=== PATIENT | female | born 1990 | race Caucasian/White ===

== ENCOUNTER 2023-08-18 20:25 | Emergency (ER) | payer OTHER ==
[~2023-08-18] VITALS: Ht 157.5 cm; Wt 86.2 kg
[2023-08-18 20:40] VITALS: BP 135/78; PULSE 92; RESP 19; TEMP 98; O2SAT 97
[2023-08-18 22:45] LABS: FLU A ANTIGEN negative (NEGATIVE); FLU B ANTIGEN NEGATIVE (NEGATIVE)
[2023-08-18 23:09] VITALS: BP 135/78; PULSE 92; RESP 19; TEMP 98; O2SAT 97
[2023-08-18] MEDS ORDERED: CETI10SG1 PO (23:16)
[2023-08-18] MEDS ORDERED: ROB PO (23:16)
[2023-08-18] MEDS ORDERED: AZIT250T4 PO (23:16)
== END 2023-08-18 23:32 | disposition home or self-care (01) ==
LOC: MED 20:25
DX: J01.90 Acute sinusitis, unspecified (principal); Z20.822 Contact with and (suspected) exposure to COVID-19; Z79.899 Other long term (current) drug therapy
CPT/HCPCS: 99283